=== PATIENT | female | born 1955 | race Hispanic/Latino ===

== ENCOUNTER 2018-03-22 11:35 | Outpatient (CLI) | payer BC ==
--- NOTE | 2018-03-22 13:04 | RAD ---
AP PELVIS: History: Right hip pain radiating down the right leg. FINDINGS/IMPRESSION: Mild degenerative changes are present. No fracture, dislocation, or bony destruction is identified. POS: [facility]
--- NOTE | 2018-03-22 13:06 | RAD ---
LUMBAR SPINE 3 VIEWS: HISTORY: Low back pain. FINDINGS: Degenerative changes are seen most prominent at L4-5 and L5-S1 levels. No fracture, subluxation, or bony destruction is seen. IMPRESSION: Lumbar spondylosis. POS: [facility]
--- NOTE | 2018-03-22 13:06 | RAD ---
RIGHT HIP 2 VIEWS: HISTORY: Right hip pain. FINDINGS/IMPRESSION: Mild degenerative changes are present. No fracture, dislocation, or bony destruction is identified. POS: [facility]
== END 2018-03-22 11:36 | disposition home or self-care (01) ==
LOC: BICRAD 11:35
PROVIDERS: ATTEND Internal Medicine
DX: M16.11 Unilateral primary osteoarthritis, right hip (principal); M47.896 Other spondylosis, lumbar region
CPT/HCPCS: 72100; 72170

== ENCOUNTER 2018-05-17 08:30 | Outpatient (CLI) | payer BC ==
--- NOTE | 2018-05-17 10:41 | RAD ---
PA AND LATERAL CHEST: Date: 05/17/18 INDICATION: Cough. COMPARISON: Prior exam dated 02/07/13. FINDINGS: There is interstitial prominence seen diffusely throughout both lungs, but more so on the right. This is new from the comparison dated 02/07/13. No consolidation is evident. No pleural effusion or pneum othorax evident. Heart size is normal. No acute osseous abnormality is evident. IMPRESSION: Diffuse interstitial prominence seen, predominantly in the right lung, but also within portions of th e left lower lobe, can be seen with atypical type infections like viral pneumonia. No air space conso lidation or pleural effusion evident. Radiographic follow-up to resolution is recommended. POS: VALENTIN
== END 2018-05-17 08:31 | disposition home or self-care (01) ==
LOC: BICRAD 08:30
PROVIDERS: ATTEND Internal Medicine
DX: R05 Cough (principal)
CPT/HCPCS: 71046

== ENCOUNTER 2020-03-15 12:25 | Outpatient (CLI) | payer BC ==
--- NOTE | 2020-03-15 14:47 | MMO ---
Bilateral MAMMO Bilat Screen [facility]. CLINICAL HISTORY: Patient is 64 years old and is seen for screening. The patient has no family history of breast cancer. The patient has no personal history of cancer. VIEWS: The views performed were: bilateral craniocaudal with tomosynthesis and bilateral mediolateral oblique with tomosynthesis. FILMS COMPARED: The present examination has been compared to prior imaging studies performed at [facility] on 07/25/2014, 08/12/2015, 10/13/2016 and 01/20/2018. This study has been interpreted with the assistance of computer-aided detection. MAMMOGRAM FINDINGS: There are scattered fibroglandular densities. Benign calcifications are noted bilaterally. Nodularity is stable. There are no suspicious masses, suspicious calcifications, or new areas of architectural distortion. IMPRESSION: THERE IS NO MAMMOGRAPHIC EVIDENCE OF MALIGNANCY. A ROUTINE FOLLOW-UP MAMMOGRAM IN 1 YEAR IS RECOMMENDED. THE RESULTS OF THIS EXAM WERE SENT TO THE PATIENT. ACR BI-RADS Category 2 - Benign finding MAMMOGRAPHY NOTE: 1. A negative mammogram report should not delay a biopsy if a dominant of clinically suspicious mass is present. 2. Approximately 10% to 15% of breast cancers are not detected by mammography. 3. Adenosis and dense breasts may obscure an underlying neoplasm. Reported by: KAYLA BROOKS MD Electonically Signed: [id number]
== END 2020-03-15 12:26 | disposition home or self-care (01) ==
LOC: BICMAMMO 12:25
PROVIDERS: ATTEND Internal Medicine
DX: Z12.31 Encounter for screening mammogram for malignant neoplasm of breast (principal)
CPT/HCPCS: 77063; 77067

== ENCOUNTER 2023-07-02 06:04 | Day surgery (SDC) | payer MEDICARE, OTHER ==
[2023-06-29 11:35] VITALS: BMI 43.8
[2023-07-02] MEDS ORDERED: Lidocaine 1% (PF) 30 ML VIAL ONE (06:25)
[2023-07-02] MEDS ORDERED: Propofol 1,000 MG/100 ML VIAL IV ONE (06:56)
[2023-07-02] MEDS ORDERED: fentaNYL 50 mcg/mL 1 mL Vial ONE (07:02)
[2023-07-02] MEDS ORDERED: Midazolam HCl 2 mg/2 ml Vial ONE (07:02)
[2023-07-02] MEDS ORDERED: CEFAZOLIN 2 GM VIAL ONE (07:19)
[2023-07-02] MEDS ORDERED: Sodium Chloride 0.9% 100 ML ONE (07:19)
== END 2023-07-02 10:00 | disposition home or self-care (01) ==
LOC: SDC 06:04
PROVIDERS: ATTEND Orthopaedic Surgery
PROC: 01N50ZZ Release Median Nerve, Open Approach (ICD-10-PCS; principal; 2023-07-02)
DX: G56.01 Carpal tunnel syndrome, right upper limb (principal); E66.9 Obesity, unspecified; E78.5 Hyperlipidemia, unspecified; M18.12 Unilateral primary osteoarthritis of first carpometacarpal joint, left hand; E11.40 Type 2 diabetes mellitus with diabetic neuropathy, unspecified; Z68.41 Body mass index [BMI] 40.0-44.9, adult; Z87.59 Personal history of other complications of pregnancy, childbirth and the puerperium; Z90.722 Acquired absence of ovaries, bilateral; Z98.890 Other specified postprocedural states; Z79.899 Other long term (current) drug therapy
CPT/HCPCS: 64721; 82962; J3010; 36416; J2001; J2250; J2704; J3490

== ENCOUNTER 2023-12-14 09:06 | Outpatient (CLI) | payer OTHER | END 2023-12-14 09:07 | disposition home or self-care (01) | LOC: BICMAMMO 09:06 | PROVIDERS: ATTEND Internal Medicine | DX: Z12.31 Encounter for screening mammogram for malignant neoplasm of breast (principal) | CPT/HCPCS: 77063; 77067 ==